=== PATIENT | female | born 1985 | race Caucasian/White ===

== ENCOUNTER 2018-11-26 16:14 | Emergency (ER) | payer OTHER, SELFPAY ==
--- NOTE | 2018-11-26 17:36 | RAD REPORT ---
EXAM DESCRIPTION: USExtremjay Venous Uni Ltd11/26/2018 5:23 pm CLINICAL HISTORY: Right leg pain . COMPARISON: None. FINDINGS: Right common femoral, superficial femoral, popliteal and right posterior tibial veins are compressible and demonstrate augmentation. Doppler demonstrates good flow. IMPRESSION: No evidence of deep venous thrombosis involving the right lower extremity.
--- NOTE | 2018-11-26 17:44 | ER ---
Nurse's Notes 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 clement, my right leg is swollen and red. Transition of care: patient was not received from another setting of care. Onset of symptoms was November 26, 2018. Risk Assessment: Do you want to hurt yourself or someone else? Patient reports no desire to harm self or others. Initial Sepsis Screen: Does the patient meet any 2 criteria? No. Patient's initial sepsis screen is negative. Does the patient have a suspected source of infection? No. Patient's initial sepsis screen is negative. Care prior to arrival: None. 16:24 Method Of Arrival: Ambulatory tw2 16:24 Acuity: SOUTH 3 tw2 16:[address] Rutledge note states: Patient with history of Pulmonary embolism (2012), now tw2 with swelling and pain, RIGHT LE. Please evaluate in ER. Triage Assessment: 16:28 General: Appears in no apparent distress. Behavior is calm, cooperative, appropriate tw2 for age. Pain: Complains of pain in right leg. 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 - Social history:: Smoking status: . - Ebola Screening: : Patient denies travel to an Ebola-affected area in the 21 days before illness onset. Screenin:18 Abuse screen: Denies threats or abuse. Denies injuries from another. Nutritional rv screening: No deficits noted. Tuberculosis screening: No symptoms or risk factors identified. Fall Risk None identified. Assessment: 17:16 General: Appears in no apparent distress. comfortable, Behavior is calm, cooperative. rv Pain: Complains of pain in right leg. Neuro: Level of Consciousness is awake, alert, obeys commands, Oriented to person, place, time, situation. Cardiovascular: Patient's skin is warm and dry. Respiratory: Airway is patent. GI: No signs and/or symptoms were reported involving the gastrointestinal system. : No signs and/or symptoms were reported regarding the genitourinary system. EENT: No signs and/or symptoms were reported regarding the EENT system. Derm: Skin is intact. Musculoskeletal: Swelling present in right leg Reports pain in right leg. Vital Signs: 16:27 BP 125 / 85; Pulse 87; Resp 17; Temp 97.7; Pulse Ox 100% on R/A; Weight 94.35 kg; tw2 Height 5 ft. 2 in. (157.48 cm); Pain 4/10; 18:06 BP 112 / 58; Pulse 87; Resp 15; Pulse Ox 98% ; rv 16:27 Body Mass Index 38.04 (94.35 kg, 157.48 cm) tw2 ED Course: 16:16 Patient arrived in ED. dl4 16:17 Rula Clement MD is Private Physician. dl4 16:26 Triage completed. tw2 16:26 Arm band placed on. tw2 16:28 EKG completed in triage. Results shown to MD. tw2 16:33 Maninder Holley RN is Primary Nurse. rv 16:41 Inserted saline lock: 22 gauge in left antecubital area, using aseptic technique. Blood rv collected. 16:53 Bert Davis PA is PHCP. cp 16:53 Maikol Cueva MD is Attending Physician. cp 17:18 Patient has correct armband on for positive identification. Bed in low position. Call rv light in reach. Side rails up X 1. Pulse ox on. NIBP on. 17:23 US Extremity Venous Unilateral Ltd In Process Unspecified. EDMS 18:05 No provider procedures requiring assistance completed. IV discontinued, intact, rv bleeding controlled, No redness/swelling at site. Pressure dressing applied. Administered Medications: No medications were administered Outcome: 17:43 Discharge ordered by . cp 18:24 Discharged to home ambulatory. rv 18:24 Condition: good 18:24 Discharge instructions given to patient, Instructed on discharge instructions, follow up and referral plans. medication usage, Demonstrated understanding of instructions, follow-up care, medications, Prescriptions given X 2. 18:25 Patient left the ED. rv Signatures: Dispatcher [employer] EDMS Bert Davis PA PA cp Wise, Tara RN RN tw2 Maninder Holley RN RN rv Omkar Tran dl4
--- NOTE | 2018-11-26 17:44 | EDPHYS ---
Physician Documentation [facility] Name: Lily Suarez Age: 32 yrs Sex: Female : 1985 Arrival Date: 11/26/2018 Time: 16:16 Bed 28 Private MD: Rula Clement K ED Physician Maikol Cueva HPI: 11/26 17:00 This 32 yrs old Female presents to ER via Ambulatory with complaints of Leg cp Swelling, Leg Pain. 17:00 The patient presents with pain, that is acute, swelling, tenderness. The complaints cp affect the right calf. 17:00 Context: resulted from an unknown cause, the patient can fully bear weight, the patient cp is able to ambulate, without difficulty. 17:00 Onset: The symptoms/episode began/occurred yesterday. Associated signs and symptoms: cp Pertinent positives: calf tenderness, Pertinent negatives fever, warmth, weakness. Treatment prior to arrival includes: no previous treatment. 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 - Social history:: Smoking status: . - Ebola Screening: : Patient denies travel to an Ebola-affected area in the 21 days before illness onset. ROS: 17:05 Constitutional: Negative for body aches, chills, fever, poor PO intake. cp 17:05 Eyes: Negative for injury, pain, redness, and discharge. cp 17:05 ENT: Negative for drainage from ear(s), ear pain, sore throat, difficulty swallowing, difficulty handling secretions. 17:05 Cardiovascular: Negative for chest pain, edema, palpitations. 17:05 Respiratory: Negative for cough, shortness of breath, wheezing. 17:05 Abdomen/GI: Negative for abdominal pain, nausea, vomiting, and diarrhea. 17:05 Back: Negative for pain at rest, pain with movement. 17:05 : Negative for urinary symptoms. 17:05 MS/extremity: Positive for pain, swelling, tenderness, of the right calf, Negative for injury or acute deformity, paresthesias. 17:05 Skin: Negative for rash. 17:05 Neuro: Negative for altered mental status, headache, weakness. 17:05 All other systems are negative. Exam: 17:15 Constitutional: The patient appears in no acute distress, alert, awake, cp non-diaphoretic, non-toxic, well developed, well nourished. 17:15 Head/Face: Normocephalic, atraumatic. cp 17:15 Eyes: Periorbital structures: appear normal, Conjunctiva: normal, no exudate, no injection, Lids and lashes: appear normal, bilaterally. 17:15 ENT: External ear(s): are unremarkable, Nose: is normal, Mouth: is normal, Posterior pharynx: is normal, airway is patent. 17:15 Chest/axilla: Inspection: normal, Palpation: is normal, no crepitus, no tenderness. 17:15 Cardiovascular: Rate: normal, Rhythm: regular, Edema: is not appreciated. 17:15 Respiratory: the patient does not display signs of respiratory distress, Respirations: normal, no use of accessory muscles, no retractions, no splinting, no tachypnea, labored breathing, is not present, Breath sounds: are clear throughout, no decreased breath sounds, no stridor, no wheezing. 17:15 Abdomen/GI: Inspection: abdomen appears normal. 17:15 Back: pain, is absent, ROM is normal. 17:15 Musculoskeletal/extremity: DVT Exam: no erythema, no increased warmth, pain, that is mild, of the right leg, swelling, that is mild, of the right leg, tenderness, that is mild, of the right leg, positive Homans' sign noted on exam. 17:15 Skin: cellulitis, is not appreciated, no rash present. 17:15 Neuro: Orientation: to person, place \T\ time. Mentation: is normal, Motor: moves all fours, strength is normal. Vital Signs: 16:27 BP 125 / 85; Pulse 87; Resp 17; Temp 97.7; Pulse Ox 100% on R/A; Weight 94.35 kg; tw2 Height 5 ft. 2 in. (157.48 cm); Pain 4/10; 18:06 BP 112 / 58; Pulse 87; Resp 15; Pulse Ox 98% ; rv 16:27 Body Mass Index 38.04 (94.35 kg, 157.48 cm) tw2 MDM: 16:53 Patient medically screened. cp 17:15 Differential diagnosis: DVT, cellulitis, varicose veins, edema. cp 17:42 Data reviewed: vital signs, nurses notes, radiologic studies, ultrasound, and as a cp result, I will discharge patient. 17:42 Counseling: I had a detailed discussion with the patient and/or guardian regarding: the cp historical points, exam findings, and any diagnostic results supporting the discharge/admit diagnosis, radiology results, to return to the emergency department if symptoms worsen or persist or if there are any questions or concerns that arise at home. 11/26 16:57 Order name: Extremity Venous Unilateral Ltd; Complete Time: 18:22 cp 11/26 18:22 Interpretation: Report reviewed. cp 11/26 17:55 Order name: EKG Electrocardiogram EDMS Administered Medications: No medications were administered Disposition: 11/26/18 17:43 Discharged to Home. 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 - Condition is Stable. - Discharge Instructions: Musculoskeletal Pain, Varicose Veins. - Prescriptions for Cyclobenzaprine 10 mg Oral Tablet - take 1 tablet by ORAL route every 8 hours As needed no driving while taking medication; 20 tablet. Diclofenac Sodium 75 mg Oral Tablet, Delayed Release (E.C.) - take 1 tablet by ORAL route 2 times per day; 20 tablet. - Medication Reconciliation Form, Thank You Letter, Antibiotic Education, Prescription Opioid Use form. - Follow up: Private Physician; When: 2 - 3 days; Reason: Recheck today's complaints. - Problem is new. - Symptoms have improved. Addendum: 11/28/2018 16:00 Co-signature as Attending Physician, Maikol Cueva MD I agree with the assessment and k dr plan of care. Signatures: Dispatcher [employer] EDMS Maikol Cueva MD MD [facility] Bert Davis PA PA cp Alejandrina Sexton, RN RN tw2 Maninder Holley RN RN rv Corrections: (The following items were deleted from the chart) 11/26 17:44 17:43 11/26/2018 17:43 Discharged to Home. Impression: Pain in right lower leg. cp Condition is Stable. Forms are Medication Reconciliation Form, Thank You Letter, Antibiotic Education, Prescription Opioid Use. Follow up: Private Physician; When: 2 - 3 days; Reason: Recheck today's complaints. Problem is new. Symptoms have improved. cp 18:25 17:44 11/26/2018 17:43 Discharged to Home. 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 Condition is Stable. Discharge Instructions: Musculoskeletal Pain, Varicose Veins. Forms are Medication Reconciliation Form, Thank You Letter, Antibiotic Education, Prescription Opioid Use. Follow up: Private Physician; When: 2 - 3 days; Reason: Recheck today's complaints. Problem is new. Symptoms have improved. cp
[2018-11-26 19:39] VITALS: TEMP 97.7
[2018-11-26 19:40] VITALS: BP 112/58; O2SAT 98
--- NOTE | 2018-11-27 07:04 | EKG ---
Test Date: 2018-11-26 Test Time: 16:30:12 Central Services Tech: NATALI MEASUREMENT RESULTS: Intervals: Rate: 81 MS: 132 QRSD: 82 QT: 360 QTc: 418 [place]: P: 40 MS: 132 QRS: 72 T: 37 INTERPRETIVE STATEMENTS: Normal sinus rhythm with sinus arrhythmia Normal ECG Compared to ECG 12/21/2012 13:39:49 No significant changes Electronically Signed On 11-27-18 07:03:42 CDT by Vnicent Morrow
== END 2018-11-26 18:25 | disposition home or self-care (01) ==
LOC: ER 16:14
DX: I83.811 Varicose veins of right lower extremity with pain (principal); Z88.0 Allergy status to penicillin; Z88.8 Allergy status to other drugs, medicaments and biological substances; Z91.048 Other nonmedicinal substance allergy status
CPT/HCPCS: 93005; 93971; 99284

== ENCOUNTER 2019-01-14 15:07 | Emergency (ER) | payer OTHER ==
--- OUTSIDE RECORDS SUMMARY | 2019-01-14 15:09 | XMS REPORT ---
:1985 [facility] [address] [place] [address] Care Team Providers Name Role Phone Unavailable Unavailable Unavailable Problems This patient has no known problems. Allergies, Adverse Reactions, Alerts This patient has no known allergies or adverse reactions. Medications This patient has no known medications.
[2019-01-14] MEDS ORDERED: DIAZEPAM 10 MG/2 ML INJ SYRINGE ONE (15:42)
[2019-01-14 15:46] LABS: Absolute Lymphocytes (CBC) 2.4 K/uL (0.7-4.9); Basophils % 0.7 % (0-1.3); Hematocrit 38.7 % (36.0-45.0); Lymphocytes % 30.2 % (15.3-44.8); MPV 8.7 fL (7.6-11.3); RBC Red Blood Cell Count 4.27 M/uL (3.86-4.86)
[2019-01-14 15:51] LABS: Protime INR 0.95
[2019-01-14 16:10] LABS: ALT/SGPT 22 U/L (12-78); AST/SGOT 19 U/L (15-37); Albumin 3.6 g/dL (3.4-5.0); Alkaline Phosphatase 88 U/L (45-117); BUN Blood Urea Nitrogen 10 mg/dL (7-18); Bicarbonate 27 mmol/L (21-32); Bilirubin Direct 0.1 mg/dL (0-0.2); Bilirubin Total 0.4 mg/dL (0.2-1.0); Glucose Level 82 mg/dL (74-106); Magnesium 2.3 mg/dL (1.8-2.4); NT PRO-BNP 30 pg/mL (<125); Potassium 3.6 mmol/L (3.5-5.1); Sodium Level 139 mmol/L (136-145); Troponin (Emerg Dept Use Only) < 0.02 ng/mL (0.0-0.045)
--- NOTE | 2019-01-14 16:31 | RAD REPORT ---
EXAM DESCRIPTION: Heladio Single View01/14/2019 3:41 pm CLINICAL HISTORY: Chest pain COMPARISON: 2012 FINDINGS: The lungs appear clear of acute infiltrate. The heart is normal size IMPRESSION: No acute abnormalities displayed
[2019-01-14] MEDS ORDERED: KETOROLAC 30 MG/ML INJ ONE (17:26)
[2019-01-14 17:41] LABS: Urine Blood TRACE (NEG); Urine Glucose NEGATIVE (NEG); Urine Protein NEGATIVE (NEG); Urine Specific Gravity 1.015 (1.005-1.030)
--- NOTE | 2019-01-14 17:55 | EDPHYS ---
Physician Documentation [facility] Name: Lily Suarez Age: 33 yrs Sex: Female : 1985 Arrival Date: 01/14/2019 Time: 15:08 Bed 20 Private MD: ED Physician Tien Douglas HPI: 01/14 15:24 This 33 yrs old Female presents to ER via EMS with complaints of Shoulder jmm Pain. 15:24 The patient or guardian complains of an injury, pain. Onset: The symptoms/episode jmm began/occurred acutely. Modifying factors: the symptoms are alleviated by remaining still, The symptoms are aggravated by movement, rotation of arm. Associated signs and symptoms: Pertinent positives:. This is a 33 year old female with a history of PE that presents to the ED with complaints of acute onset left shoulder pain which radiates up the left side of her neck, down her left arm, and to her left chest wall. Patient states this occurred after reaching down in her car. Pain is worsened with movement of the left arm. . 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 - Social history:: Smoking status: Patient/guardian denies using tobacco. - Ebola Screening: : No symptoms or risks identified at this time. ROS: 15:24 Constitutional: Negative for fever, chills, and weight loss. jmm 15:24 Respiratory: Negative for shortness of breath, cough, wheezing, and pleuritic chest pain, Abdomen/GI: Negative for abdominal pain, nausea, vomiting, diarrhea, and constipation. 15:24 Cardiovascular: Positive for chest pain. 15:24 MS/extremity: Positive for pain. 15:24 All other systems are negative. Exam: 15:24 Head/Face: atraumatic. Eyes: EOMI, no conjunctival erythema appreciated ENT: Moist jmm Mucus Membranes Neck: Trachea midline, Supple 15:24 Constitutional: The patient appears alert, awake, anxious, uncomfortable. 15:24 Chest/axilla: Palpation: tenderness, that is moderate, of the anterior aspect of left upper chest. 15:24 Cardiovascular: Rate: normal, Rhythm: regular, Pulses: no pulse deficits are appreciated. 15:24 Respiratory: the patient does not display signs of respiratory distress, Respirations: normal, Breath sounds: are clear throughout. 15:24 Musculoskeletal/extremity: painful rom noted to the left shoulder, full supervisor fishing strength, compartments are soft, NVI. 15:24 Skin: Appearance: Color: normal in color, abscess. 15:24 Neuro: Orientation: is normal, Mentation: is normal, Memory: is normal. 15:24 Psych: Behavior/mood is pleasant, cooperative. 15:50 ECG was reviewed by the Attending Physician. [facility] Vital Signs: 15:13 BP 131 / 98; Pulse 86; Resp 17; Temp 98; Pulse Ox 99% ; Weight 94.35 kg; bp 16:42 BP 110 / 80; Pulse 83; Resp 16; Temp 98.0(O); Pulse Ox 100% on R/A; mh5 17:41 BP 120 / 80; Pulse 84; Resp 16; Temp 98.1(O); Pulse Ox 100% on R/A; mh5 18:07 BP 107 / 70; Pulse 82; Resp 17; Temp 98; Pulse Ox 99% ; bp MDM: 15:10 Patient medically screened. [facility] 17:52 Data reviewed: vital signs, nurses notes. Data reviewed: lab test result(s), EKG, [facility] radiologic studies, plain films. Counseling: I had a detailed discussion with the patient and/or guardian regarding: the historical points, exam findings, and any diagnostic results supporting the discharge/admit diagnosis, lab results, radiology results, the need for outpatient follow up, to return to the emergency department if symptoms worsen or persist or if there are any questions or concerns that arise at home. ED course: Pain has decreased in the ED. PE consistent with MS pain. Patient is advised to follow up with pcp and otherwise given strict return precautions. Patient understood and agrees with the plan of care. . 01/14 15:16 Order name: Basic Metabolic Panel; Complete Time: 16:14 [facility] 01/14 15:16 Order name: CBC with Diff; Complete Time: 15:59 [facility] 01/14 15:16 Order name: LFT's; Complete Time: 16:14 [facility] 01/14 15:16 Order name: Magnesium; Complete Time: 16:14 [facility] 01/14 15:16 Order name: NT PRO-BNP; Complete Time: 16:14 [facility] 01/14 15:16 Order name: PT-INR; Complete Time: 15:59 [facility] 01/14 15:16 Order name: Troponin (emerg Dept Use Only); Complete Time: 16:14 [facility] 01/14 15:16 Order name: XRAY Chest (1 view); Complete Time: 16:33 [facility] 01/14 15:16 Order name: EKG; Complete Time: 15:17 [facility] 01/14 15:16 Order name: Cardiac monitoring; Complete Time: 15:22 [facility] 01/14 17:15 Order name: Urine Dipstick--Ancillary (enter results) 01/14 17:15 Order name: Urine --Ancillary (enter results) 01/14 15:16 Order name: EKG - Nurse/Tech; Complete Time: 15:31 [facility] 01/14 15:16 Order name: IV Saline Lock; Complete Time: 15:55 [facility] 01/14 15:16 Order name: Labs collected and sent; Complete Time: 15:55 [facility] 01/14 15:16 Order name: O2 Per Protocol; Complete Time: 15:32 [facility] 01/14 15:16 Order name: O2 Sat Monitoring; Complete Time: 15:32 [facility] 01/14 16:57 Order name: Urine Test (obtain specimen); Complete Time: 17:03 [facility] 01/14 17:00 Order name: Urine Dipstick-Ancillary (obtain specimen); Complete Time: 17:03 bp EC:50 Rate is 83 beats/min. Rhythm is regular. QRS [place] is Normal. AL interval is normal. QRS jmm interval is normal. QT interval is normal. No Q waves. T waves are Normal. No ST changes noted. Reviewed by me. Administered Medications: 15:31 Drug: Valium 5 mg Route: IVP; Site: right forearm; bp 17:00 Follow up: Response: Marked relief of symptoms bp 17:20 Drug: Ketorolac 30 mg Route: IVP; Site: right forearm; bp 18:10 Follow up: Response: Pain is decreased bp Disposition: 01/14/19 17:54 Discharged to Home. Impression: Muscle spasm. - Condition is Stable. - Discharge Instructions: Spasticity. - Prescriptions for Zanaflex 4 mg Oral Tablet - take 1 tablet by ORAL route every 8 hours As needed; 20 tablet. - Medication Reconciliation Form, Thank You Letter, Antibiotic Education, Prescription Opioid Use form. - Follow up: Private Physician; When: 2 - 3 days; Reason: Recheck today's complaints, Continuance of care, Re-evaluation by your physician. Addendum: 01/17/2019 19:33 Co-signature as Attending Physician, Tien Douglas MD. r n Signatures: Dispatcher [employer] EDMS Elías Sanders PA PA jmm Nieto, Roman, MD MD rn Marshal Morfin RN RN bp Corrections: (The following items were deleted from the chart) 01/14 18:11 17:54 01/14/2019 17:54 Discharged to Home. Impression: Muscle spasm. Condition is bp Stable. Forms are Medication Reconciliation Form, Thank You Letter, Antibiotic Education, Prescription Opioid Use. Follow up: Private Physician; When: 2 - 3 days; Reason: Recheck today's complaints, Continuance of care, Re-evaluation by your physician. [facility]
--- NOTE | 2019-01-14 17:55 | ER ---
Nurse's Notes [facility] Name: Lily Suarez Age: 33 yrs Sex: Female : 1985 Arrival Date: 01/14/2019 Time: 15:08 Bed 20 Private MD: Diagnosis: Muscle spasm Presentation: 01/14 15:10 Presenting complaint: EMS states: PT P/U FROM [facility] WHERE SHE WAS bp SCREAMING AT [place] FOR HELP FOR HER LEFT SHOULDER PAIN. NO TRAUMA OR OBJECTIVE ABNORMALITIES NOTED. Transition of care: patient was not received from another setting of care. Onset of symptoms is unknown. Risk Assessment: Do you want to hurt yourself or someone else? Patient reports no desire to harm self or others. Initial Sepsis Screen: Does the patient meet any 2 criteria? No. Patient's initial sepsis screen is negative. Does the patient have a suspected source of infection? No. Patient's initial sepsis screen is negative. Care prior to arrival: None. 15:10 Method Of Arrival: EMS: [facility] bp 15:10 Acuity: SOUTH 3 bp Triage Assessment: 15:10 General: Appears in no apparent distress. comfortable, obese, Behavior is cooperative, bp appropriate for age, anxious. Pain: Complains of pain in left clavicle. EENT: No deficits noted. Neuro: No deficits noted. Cardiovascular: No deficits noted. Respiratory: No deficits noted. GI: No signs and/or symptoms were reported involving the gastrointestinal system. : No signs and/or symptoms were reported regarding the genitourinary system. Derm: No deficits noted. Musculoskeletal: No deficits noted. 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 - Social history:: Smoking status: Patient/guardian denies using tobacco. - Ebola Screening: : No symptoms or risks identified at this time. Screenin:10 Abuse screen: Denies threats or abuse. Denies injuries from another. Nutritional bp screening: No deficits noted. Tuberculosis screening: No symptoms or risk factors identified. Fall Risk None identified. Assessment: 15:10 General: SEE TRIAGE NOTE. bp 17:00 Reassessment: PT AMBULATED TO BATHROOM WITH STEADY GAIT, PROVIDER INFORMED. bp 18:07 Reassessment: PT D/C HOME AMBULATORY WITH FAMILY, DX WITH SPASTICITY. bp Vital Signs: 15:13 BP 131 / 98; Pulse 86; Resp 17; Temp 98; Pulse Ox 99% ; Weight 94.35 kg; bp 16:42 BP 110 / 80; Pulse 83; Resp 16; Temp 98.0(O); Pulse Ox 100% on R/A; mh5 17:41 BP 120 / 80; Pulse 84; Resp 16; Temp 98.1(O); Pulse Ox 100% on R/A; mh5 18:07 BP 107 / 70; Pulse 82; Resp 17; Temp 98; Pulse Ox 99% ; bp ED Course: 15:08 Patient arrived in ED. bp 15:09 Elías Sanders PA is PHCP. [facility] 15:09 Tien Douglas MD is Attending Physician. jmm 15:10 Patient has correct armband on for positive identification. Bed in low position. Call bp light in reach. Side rails up X2. 15:12 Triage completed. bp 15:13 Arm band placed on. bp 15:18 Marshal Morfin, RN is Primary Nurse. bp 15:21 EKG done, by design technician. reviewed by Elías STODDARD. sm3 15:30 Inserted saline lock: 20 gauge in right forearm, using aseptic technique. Blood bp collected. 15:42 XRAY Chest (1 view) In Process Unspecified. EDMS 17:19 Urine collected: clean catch specimen, mikey colored. 5 18:09 No provider procedures requiring assistance completed. IV discontinued, intact, bp bleeding controlled, No redness/swelling at site. Pressure dressing applied. Administered Medications: 15:31 Drug: Valium 5 mg Route: IVP; Site: right forearm; bp 17:00 Follow up: Response: Marked relief of symptoms bp 17:20 Drug: Ketorolac 30 mg Route: IVP; Site: right forearm; bp 18:10 Follow up: Response: Pain is decreased bp Outcome: 17:54 Discharge ordered by . [facility] 18:09 Discharged to home ambulatory, with family. bp 18:09 Condition: stable 18:09 Discharge instructions given to patient, Instructed on discharge instructions, follow up and referral plans. medication usage, Demonstrated understanding of instructions, follow-up care, medications, Prescriptions given X 1. 18:11 Patient left the ED. bp Signatures: Dispatcher [employer] EDMS Elías Sanders PA PA jmm Martinez, Maria 5 Marshal Morfin, RN RN Marah Turpin 3
[2019-01-14 18:50] VITALS: BP 107/70; TEMP 98; O2SAT 99
--- NOTE | 2019-01-15 08:19 | EKG ---
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
== END 2019-01-14 18:11 | disposition home or self-care (01) ==
LOC: ER 15:07
DX: M62.838 Other muscle spasm (principal); Z88.0 Allergy status to penicillin; Z91.09 Other allergy status, other than to drugs and biological substances; Z88.8 Allergy status to other drugs, medicaments and biological substances
CPT/HCPCS: 93005; 85025; 80048; 36415; 83735; 81025; 85610; 80076; 81003; 84484; 83880; 71045; 96375; 96374; 99284; J3360